=== PATIENT | female | born 1950 | race Caucasian/White ===

== ENCOUNTER → 2016-04-04 | Outpatient (CLI) | payer MEDICARE, OTHER ==
--- NOTE | 2016-04-04 15:30 | REPMRS ---
Patient History The patient states she has not had a clinical breast exam in over a year. Patient is postmenopausal. Family history of pancreatic cancer in father at age 50 or over and breast cancer in 2 maternal aunts at age 50 or over. Benign core biopsy of the right breast, 2001. Took hormonal contraceptives for 3 years. Took unspecified hormones for 3 years. Digital Woman Screen Mammo: April 04, 2016 - Exam #: [id number] Bilateral CC and MLO view(s) were taken. Technologist: Pamella Durbin, Technologist Prior study comparison: November 05, 2013, bilateral bilat screen digital mammo, performed at [facility] ([facility]). FINDINGS: There are scattered fibroglandular densities. There has been no change in the appearance of the mammogram from the prior studies. There is a mild amount of scattered fibroglandular density which is fairly symmetric. There is no interval development of dominant mass, architectural distortion, or clustered microcalcification suggestive of malignancy. ASSESSMENT: BI-RADS/ACR category 1 mammogram. Negative. Recommendation Routine screening mammogram in 1 year (for women over age 40). This mammogram was interpreted with the aid of an FDA-approved computer-aided dectection system. Electronically Signed By: Lei Cabrera MD 04/04/16 [id number]
--- NOTE | 2016-04-06 10:10 | DEXA ---
AP SPINE L1 - L4 0.989 -1.7 0.0 LT FEMUR TOTAL 0.801 -1.6 -0.3 RT FEMUR TOTAL 0.772 -1.9 -0.6 TOTAL BODY TOTAL OTHER DUAL FEMUR FRAX* ASSESSMENT Risk factors: History of adult fracture. 10 year probability of fracture Major osteoporotic fracture 19.0 % Hip fracture 3.8 % COMMENTS: There is low bone density of the spine and hips. FOLLOW-UP: Recommendation for the next bone density exam: 2 years. HAYES
== END ==
LOC: M WHC 14:20
PROVIDERS: ATTEND Internal Medicine
DX: Z13.820 Encounter for screening for osteoporosis (principal); Z78.0 Asymptomatic menopausal state; Z92.0 Personal history of contraception; Z12.31 Encounter for screening mammogram for malignant neoplasm of breast
CPT/HCPCS: 77080; G0202

== ENCOUNTER → 2016-08-24 | Outpatient (REF) | payer MEDICARE, OTHER ==
[2016-08-24 13:30] LABS: BASO % 0.5 % (0.0-1.0); LARGE UNSTAINED CELL # 0.1 K/mm3 (0.0-0.4); LARGE UNSTAINED CELL % 1.2 % (0.0-4.0); LYMPH % 35.8 % (24.0-44.0); MEAN CORPUSCULAR HEMOGLOBIN 31.4 pg (27.0-33.0); MEAN CORPUSCULAR HGB CONC 33.3 g/dl (32.0-36.5); MEAN CORPUSCULAR VOLUME 94.3 fl (80.0-96.0); MONO # 0.4 K/mm3 (0.0-0.8); MONO % 4.9 % (0.0-5.0); NEUTROPHILS # 4.9 K/mm3 (1.8-7.7); NEUTROPHILS % 57.6 % (36.0-66.0); PLATELET COUNT, AUTOMATED 220 k/mm3 (150-450); WHITE BLOOD COUNT 8.4 K/mm3 (4.0-10.0)
[2016-08-24 14:33] LABS: ERYTHROCYTE SEDIMENTATION RATE 11 mm/hr (0-30)
== END ==
LOC: M SFHCPLAZ 11:11
PROVIDERS: ATTEND Internal Medicine Infectious Disease
DX: R61 Generalized hyperhidrosis (principal); Z20.9 Contact with and (suspected) exposure to unspecified communicable disease; N95.1 Menopausal and female climacteric states
CPT/HCPCS: 36415; 85025; 85652; 86140; G0463

== ENCOUNTER → 2016-10-24 | Outpatient (REF) | payer MEDICARE, OTHER ==
[2016-10-24 16:24] LABS: FREE T4 0.84 NG/DL (0.76-1.46)
== END ==
LOC: M SFHCPLAZ 13:19
PROVIDERS: ATTEND Internal Medicine Infectious Disease
DX: I25.10 Atherosclerotic heart disease of native coronary artery without angina pectoris (principal); R61 Generalized hyperhidrosis
CPT/HCPCS: 36415; 84439; 84443; 87116; 87206; G0463

== ENCOUNTER → 2018-08-21 | Outpatient (CLI) | payer MEDICARE, OTHER ==
[~2018-08-21] MED LIST: ASPI81TA26 PO; CRES10TA PO; JANU50TA25 PO; METHACHOLINE KIT (J7674) INH ONE; NORV5TAB PO; PROV100T25 PO; SING10TA32 PO; VENL75CA2 PO; VITA500T3 PO; ZYRT10CA5 PO
--- NOTE | 2018-08-21 16:09 | PFTRPT ---
Height: 65.00 Inches Weight: 133.00 Lbs BSA: 1.66 Diagnosis: R06.00 DATE OF STUDY: 08/21/2018 ORDERED BY: Dr. Catalan INTERPRETATION: Study of excellent technical quality. Under protocol, methacholine was administered. Even after a maximal dose of 25 mg or 188.875 CDUs, no provocation dose ever achieved. IMPRESSION: Negative methacholine challenge study. MTDD
== END ==
LOC: M CARPUL 14:18
PROVIDERS: ATTEND Internal Medicine Pulmonary Disease
DX: R06.00 Dyspnea, unspecified (principal)
CPT/HCPCS: 94070; 95070; J7674

== ENCOUNTER → 2020-09-03 | Outpatient (CLI) | payer MEDICARE, OTHER ==
[~2020-09-03] MED LIST changes: +CYAN500T14 PO; -METHACHOLINE KIT (J7674) INH ONE; -VITA500T3 PO
--- NOTE | 2020-09-03 16:05 | REP ---
INDICATION: C/O CONSTANT RIGHT AXILLARY DISCOMFORT; R AXILLARY DISCOMFORT X3 MONTHS. Palpable abnormality in the right axilla on clinician breast exam. The patient does not feel this. COMPARISON: Comparison mammography April 04, 2016 and November 05, 2013. TECHNIQUE: A skin marker is affixed to the skin at site of the palpable lump according the patient on clinician breast exam. Patient is self does not feel it. Laterally exaggerated CC, and axillary and a low views are obtained along with routine views. 3D tomography is carried out and targeted right axillary sonography is performed. This mammogram was interpreted with the aid of an FDA-approved computer-aided detection system. FINDINGS: Mammography demonstrates scattered fibroglandular elements. The visualized axillary tissue is predominantly fat replaced. One normal appearing stable lymph node is visible. No mass lesion is seen in the breast or in the axillary tissue. No worrisome skin changes observed. No microcalcification is observed. The Volpara volumetric breast density pattern is b. Targeted ultrasound: Targeted right axillary sonography demonstrates normal subcutaneous and axillary tissues. No mass, adenopathy, or cyst is seen. IMPRESSION: BIRADS/ACR category 1 negative right breast and right axillary mammographic and sonographic findings. This patient's Tyrer-Cuzick lifetime breast cancer risk assessment score is 5.4%. RECOMMENDATION: Repeat screening mammography recommended 1 year (for women over 40). Clinical follow-up is advised. The patient letter being requested is M2. <Electronically signed by Lei Cabrera > 09/03/20 [id number]
== END ==
LOC: M WHC 12:41
PROVIDERS: ATTEND Family Medicine
DX: R59.0 Localized enlarged lymph nodes (principal); I25.10 Atherosclerotic heart disease of native coronary artery without angina pectoris; R07.89 Other chest pain
CPT/HCPCS: 76882; 77065; G0279

== ENCOUNTER → 2022-10-25 | Outpatient (CLI) | payer MEDICARE, OTHER ==
[~2022-10-25] MED LIST changes: +MONT-5 PO; -SING10TA32 PO
== END ==
LOC: M SOG 08:58
PROVIDERS: ATTEND Orthopaedic Surgery
DX: M25.512 Pain in left shoulder (principal); Z53.8 Procedure and treatment not carried out for other reasons

== ENCOUNTER → 2024-03-08 | Outpatient (CLI) | payer MEDICARE, OTHER | LOC: M WHC 13:33 | PROVIDERS: ATTEND Internal Medicine | DX: Z12.31 Encounter for screening mammogram for malignant neoplasm of breast (principal); Z13.820 Encounter for screening for osteoporosis; M81.0 Age-related osteoporosis without current pathological fracture; M47.817 Spondylosis without myelopathy or radiculopathy, lumbosacral region; Z91.89 Other specified personal risk factors, not elsewhere classified ==

== ENCOUNTER → 2024-05-02 | Outpatient (REF) | payer MEDICARE, OTHER | LOC: M SFHCDERM 17:44 | PROVIDERS: ATTEND Nurse Practitioner Family | DX: D04.39 Carcinoma in situ of skin of other parts of face (principal); L57.0 Actinic keratosis ==